=== PATIENT | male | born 1980 | race Caucasian/White ===

== ENCOUNTER 2020-08-24 08:07 | Outpatient (CLI) | payer BC, SELFPAY ==
[2020-08-25 14:31] LABS: SARS-CoV-2 RNA PCR Negative
== END 2020-08-24 08:08 | disposition home or self-care (01) ==
PROVIDERS: PCP Family Medicine; Visit Provider Family Medicine
DX: Z20.828 Contact with and (suspected) exposure to other viral communicable diseases (principal)
CPT/HCPCS: 87635; C9803; U0003

== ENCOUNTER 2020-09-10 20:16 | Emergency (ER) | payer BC, SELFPAY ==
[2020-09-10 20:36] VITALS: BP 149/95; PULSE 111; RESP 20; TEMP 37.1; O2SAT 98
--- NOTE | 2020-09-10 20:43 | ED.WOUNDLAC ---
HPI - Wound/Laceration General Chief Complaint: Wound/Laceration Stated Complaint: 40YO male w/ right index finger lac after he cut his finger with a fillet knife just [employer]. Here for lac repair. Related Data Home Medications Medication Instructions Recorded Confirmed liraglutide [Victoza 2-Eric] 0.6 mg SUBCUT DAILY 12/01/19 09/10/20 insulin glargine [Lantus Solostar 42 unit SUBCUT QPM 09/10/20 09/10/20 U-100 Insulin] Allergies Allergy/AdvReac Type Severity Reaction Status Date / Time promethazine Allergy Mild Unverified 05/20/19 20:05 BEE STINGS Allergy Unknown Uncoded 02/22/19 09:41 Review of Systems Review of Systems: All systems reviewed & are unremarkable except as noted in HPI and below Constitutional: Constitutional: Reports as per HPI and Reports no additional constitutional complaints Eyes: Eyes: Reports as per HPI and Reports no additional eye complaints ENT: Reports system reviewed and no additional complaints, except as documented Cardiovascular: Cardiovascular: Reports as per HPI and Reports no additional cardiovascular complaints Respiratory: Respiratory: Reports as per HPI and Reports no additional respiratory complaints Gastrointestinal: Gastrointestinal: Reports as per HPI and Reports no additional gastrointestinal complaints Genitourinary: Genitourinary: Reports no additional male genitourinary complaints and Reports as per HPI Musculoskeletal: Musculoskeletal: Reports no additional musculoskeletal complaints and Reports as per HPI Integumentary/Breasts: Comments: Right index finger laceration 3cm in length with a flap. Exposed S/C tissue Neurologic: Reports system reviewed and no additional complaints, except as documented and Reports as per HPI Psychiatric: Psychiatric: Reports no additional psychiatric complaints and Reports as per HPI Endocrine: Endocrine: Reports no additional endocrine complaints and Reports as per HPI Hematologic/Lymphatic: Hematologic/Lymphatic: Reports no additional hematologic/lymphatic complaints and Reports as per HPI Allergic/Immunologic: Allergic/Immunologic: Reports no additional allergic/immunologic complaints [facility] Past Medical History Medical History Diabetes mellitus Obesity Surgical History Surgical History H/O shoulder surgery Family History Family History Grandparent Diabetes mellitus Social History Social History Additional smoking assessment comments: currently smokes half pack of cigarettes a day. Substance use: never Exam Const: General: no acute distress and alert Orientation/consciousness: patient oriented x3 Limitations: altered mental status HENMT: Head: normal to inspection Eyes: Pupils: Equal, round and reactive pupils present Neck: Neck: normal visual inspection Chest: Chest palpation & inspection: normal inspection of the chest Resp: Effort & Inspection: normal respiratory effort Cardio: Rate: regular rate Rhythm: regular rhythm GI: Inspection: non-distended GI Palp: Yes Soft to palpation and No Tenderness to palpation present (GI) Skin: Wounds: wounds noted (Right index finger lac w/ 3cm lac in shape of a flap w/ exposed SC tissue) Neuro: General: patient oriented x3, moves all extremities, no meningeal signs, no focal motor deficits and CN's II-XI intact bilaterally Cranial nerves: Yes Nystagmus not present Extrem: General: normal to inspection Psych: Mental Status: mental status grossly normal Thought content: Yes Normal thought content present Course Vital Signs Vital signs: Vital Signs Temperature 98.7 F 09/10/20 20:36 Pulse Rate 111 H 09/10/20 20:36 Respiratory Rate 20 09/10/20 20:36 Blood Pressure 149/95 H 09/10/20 20:36 Pulse Oximetry 98 10
== END 2020-09-10 21:15 | disposition home or self-care (01) ==
PROVIDERS: Emergency Provider Family Medicine; PCP Family Medicine
DX: S61.210A Laceration without foreign body of right index finger without damage to nail, initial encounter (principal)
CPT/HCPCS: 12002; 99282; 99283

== ENCOUNTER 2021-05-02 23:33 | Emergency (ER) | payer BC, SELFPAY ==
--- NOTE | ~2021-05-02 | XR_ITS ---
XR foot LT min 3V 05/03/2021 00:49 Indication: Diabetic ulcer great toe Procedure: 4 views left foot Comparison: 06/28/2017 Findings: Mild osteoarthritis first MTP joint. Lisfranc joint intact. No focal soft tissue abnormalit y. No foreign bodies. No soft tissue gas. No evidence for osteomyelitis. No fracture or traumatic mal alignment. Impression: 1: No acute bone or joint abnormality. Reviewed, dictated and finalized at location A. Impression: 1: No acute bone or joint abnormality.
[2021-05-02 23:56] VITALS: BP 141/99; PULSE 97; RESP 18; TEMP 36.9; O2SAT 97
--- NOTE | 2021-05-03 00:17 | ED.WOUNDLAC ---
HPI - Wound/Laceration General Chief Complaint: Wound/Laceration Stated Complaint: toe pain Time Seen by Provider: 05/03/21 00:17 Source: patient Mode of arrival: ambulatory Limitations: no limitations History of Present Illness HPI narrative: 41-year-old man with a history of type 2 diabetes comes in today complaining of wound on his left great toe. Patient states that he noticed some bleeding after walking around today in tennis shoes. Patient states that he has no pain, redness, red streaks, purulent drainage, fever, chills, weakness or night sweats. Onset (ago): week(s) (1) Extremity Location: Left: foot (great toe) Place: home Context: other Associated symptoms: none Treatments prior to arrival: bandage Related Data Home Medications Medication Instructions Recorded Confirmed liraglutide [Victoza 2-Eric] 1.8 mg SUBCUT DAILY 12/01/19 05/02/21 albuterol sulfate 2.5 mg INHALATION PRN 05/02/21 05/02/21 insulin glargine [Basaglar KwikPen 17 unit SUBCUT HS 05/02/21 05/03/21 U-100 Insulin] insulin lispro See Rx Instructions .ROUTE .COMPLEX 05/02/21 05/02/21 Allergies Allergy/AdvReac Type Severity Reaction Status Date / Time promethazine Allergy Mild Unverified 05/20/19 20:05 BEE STINGS Allergy Unknown Uncoded 02/22/19 09:41 Review of Systems Review of Systems: All systems reviewed & are unremarkable except as noted in HPI and below Constitutional: Constitutional: Denies chills and Denies fever(s) ENT: Denies nasal congestion and Denies sore throat Respiratory: Respiratory: Denies cough and Denies dyspnea Gastrointestinal: Gastrointestinal: Denies abdominal pain, Denies nausea and Denies vomiting Genitourinary: Genitourinary: Denies dysuria and Denies urinary frequency Integumentary/Breasts: Skin/Breast: Reports as per HPI, Denies pruritus, Denies erythema and Denies rash Hematologic/Lymphatic: Hematologic/Lymphatic: Denies easy bleeding and Denies easy bruising PMFSH Past Medical History Medical History Diabetes mellitus Obesity Surgical History Surgical History H/O shoulder surgery Family History Family History Grandparent Diabetes mellitus Social History Social History Additional smoking assessment comments: currently smokes half pack of cigarettes a day. Substance use: never Exam Const: General: no acute distress and alert Nutritional Appearance: obese Orientation/consciousness: patient oriented x3 Limitations: no limitations Eyes: Conjunctivae: conjunctivae normal Pupils: Equal, round and reactive pupils present EOM: EOMs intact bilaterally Resp: Effort & Inspection: normal respiratory effort and not labored Auscultation: clear to auscultation bilaterally, no rales, no rhonchi and wheezes ( few scattered) Cardio: Rate: regular rate Rhythm: regular rhythm Heart sounds: no murmurs Skin: General skin exam: normal color, no jaundice and no pallor Rashes: no rashes Other: 3 cm crack of the great toe tip on the left. there is no active bleeding, erythema, discharge, lymphangitis or warmth. Neuro: General: patient oriented x3, moves all extremities, no focal motor deficits and CN's II-XI intact bilaterally Speech: normal speech Gait exam (Neuro): Normal gait present Extrem: General: normal to inspection and no clubbing, cyanosis or edema Psych: Appearance: grossly normal and well kempt Mental Status: mental status grossly normal Affect: normal affect Thought content: Yes Normal thought content present Course Vital Signs Vital signs: Vital Signs Temperature 36.9 C 05/02/21 23:56 Pulse Rate 97 05/02/21 23:56 Respiratory Rate 18 05/02/21 23:56 Blood Pressure 141/99 H 05/02/21 23:56 Pulse Oximetry 97 05/02/21 23:56 [place]
--- NOTE | 2021-05-03 00:20 | PC.NURSE ---
0005-Cleaned left great toe with hibclense, safeclense, and sterile water.
[2021-05-03 01:42] VITALS: BP 140/90; PULSE 87; RESP 18; O2SAT 97
== END 2021-05-03 01:45 | disposition home or self-care (01) ==
PROVIDERS: Emergency Provider Emergency Medicine; PCP Family Medicine
DX: S91.102A Unspecified open wound of left great toe without damage to nail, initial encounter (principal)
CPT/HCPCS: 73630; 99283

== ENCOUNTER 2022-08-14 22:44 | Emergency (ER) | payer BC, SELFPAY ==
--- NOTE | ~2022-08-14 | XR_ITS ---
EXAMINATION: XR sacroiliac joints min 3V DATE: 08/14/2022 23:43 INDICATION: Bilateral sacroiliac pain. TECHNIQUE: 3 views of the sacroiliac joints were obtained. COMPARISON: None. FINDINGS: Bone alignment is normal. No fracture. The sacroiliac joints are normal. IMPRESSION: 1. Normal sacroiliac joints. Reviewed, dictated and finalized at location A.
[2022-08-14 22:58] VITALS: BP 135/89; PULSE 93; RESP 20; TEMP 36.6; O2SAT 100
--- NOTE | 2022-08-14 23:02 | ED.BACK ---
HPI - Back Pain/Injury General Chief Complaint: Back Pain/Injury Stated Complaint: kidney pains Time Seen by Provider: 08/14/22 23:02 History of Present Illness HPI Narrative: 42-year-old male patient is here with complaints of low back pain for the last 3-4 days. States that the pain is constant and worsens with movement. There is no radiation of pain into the buttocks or into the lower abdomen. He has had no associated trouble urinating. He has not noticed any blood in the urine or any burning sensation. He denies any injury to the lower back area. He states that he does have degenerative disc disease. Denies any associated fever or chills. Denies COVID exposure and her vaccination. Does not smoke or use alcohol. Has no history of drug abuse. Related Data Home Medications Medication Instructions Recorded Confirmed liraglutide 0.6 mg/0.1 mL (18 mg/3 1.8 mg subcut DAILY 12/01/19 08/14/22 mL) subcutaneous pen injector (Victoza 2-Eric) insulin lispro 100 unit/mL See Rx Instructions .Route .COMPLEX 05/02/21 08/14/22 subcutaneous pen (Humalog KwikPen (U-100) Insulin) atorvastatin 20 mg tablet 20 mg PO DAILY 08/14/22 08/14/22 hydrocodone 10 mg-acetaminophen 1 tablet PO PRN PRN Pain 08/14/22 08/14/22 325 mg tablet insulin glargine 100 unit/mL (3 52 unit subcut HS 08/14/22 08/14/22 mL) subcutaneous pen (Lantus Solostar U-100 Insulin) Allergies Allergy/AdvReac Type Severity Reaction Status Date / Time promethazine Allergy Mild Unknown Verified 08/14/22 23:16 BEE STINGS Allergy Unknown Unknown Uncoded 08/14/22 23:16 Review of Systems Review of Systems: All systems reviewed & are unremarkable except as noted in HPI and below Constitutional: Constitutional: Reports no additional constitutional complaints and Denies frequent falls Eyes: Eyes: Reports no additional eye complaints ENT: Reports system reviewed and no additional complaints, except as documented Cardiovascular: Cardiovascular: Reports no additional cardiovascular complaints Respiratory: Respiratory: Reports no additional respiratory complaints Gastrointestinal: Gastrointestinal: Reports no additional gastrointestinal complaints Genitourinary: Genitourinary: Reports no additional male genitourinary complaints Musculoskeletal: Musculoskeletal: Reports no additional musculoskeletal complaints Integumentary/Breasts: Skin/Breast: Reports system reviewed and no additional complaints, except as docu Neurologic: Reports system reviewed and no additional complaints, except as documented Psychiatric: Psychiatric: Reports no additional psychiatric complaints Endocrine: Endocrine: Reports no additional endocrine complaints PMFSH Past Medical History Medical History Degenerative disc disease Diabetes mellitus Obesity Surgical History Surgical History H/O shoulder surgery Family History Family History Grandparent Diabetes mellitus Social History Social History Additional smoking assessment comments: currently smokes half pack of cigarettes a day. Alcohol use details: Does not drink alcohol Substance use: never Exam Narrative: Alert male patient in no acute distress. Stable vital signs HEENT is normal. Lungs are clear. Heart tones are regular. Abdomen is soft and nontender. There is no guarding or rebound. Bowel sounds are active. The curvature of the spine is normal. Patient has tenderness over the SI joints bilaterally. There is no CVA tenderness. Range of motion of the spine is normal. Straight-leg raising is bilaterally symmetrical and great than 60?. Patient is alert and oriented to time place and person. Speech is normal. Gait and station is normal. Motor and sensory is intact. cr
[2022-08-14] MEDS: KETOROLAC (*BKC) 60 MG/2 ML VIAL IM (23:25)
[2022-08-14 23:29] LABS: Add Urine Microscopic? YES; Appearance Urine Clear (Clear); Bilirubin Urine Negative (Negative); Blood Urine Negative (Negative); Color Urine Light Yellow (Yellow); Glucose Urine UA 3+ (Negative); Ketones Urine Negative (Negative); Leukocyte Esterase Ur Negative (Negative); Nitrate Urine Negative (Negative); Protein Urine Negative (Negative); Specific Grav Ur <= 1.005 (1.010-1.020); Urobilinogen Urine 0.2 mg/dL (0.2-1.0)
[2022-08-14 23:35] LABS: Bacteria Urine None seen /hpf; RBC Urine 0-2 /hpf (0-2); Squamous Epithelial Cell Urine None seen /hpf (Few); WBC Urine 0-3 /hpf (0-3)
[2022-08-14 23:59] VITALS: BP 138/86; PULSE 74; RESP 18; O2SAT 99
== END 2022-08-15 00:01 | disposition home or self-care (01) ==
PROVIDERS: Emergency Provider Emergency Medicine; PCP Family Medicine
DX: M51.37 Other intervertebral disc degeneration, lumbosacral region (principal)
CPT/HCPCS: 72202; 81001; 96372; 99283; J1885

== ENCOUNTER 2022-09-03 17:45 | Emergency (ER) | payer BC, SELFPAY ==
--- NOTE | 2022-09-03 17:51 | ED.EYEPROB ---
HPI - Eye Problem General Chief complaint: Eye Problems Stated complaint: R eye pain started yesterday Time Seen by Provider: 09/03/22 17:52 Source: patient and RN notes reviewed Mode of arrival: ambulatory Limitations: no limitations History of Present Illness MD chief complaint: eye pain Onset (ago): day(s) (1) Onset description: sudden Duration: constant Location: right eye Eye Symptoms: burning, pain and itching Place: home Mechanism: none Severity: moderate If Pain, Quality: burning Associated symptoms: none Treatments Prior to Arrival: none Related Data Home Medications Medication Instructions Recorded Confirmed liraglutide 0.6 mg/0.1 mL (18 mg/3 1.8 mg subcut DAILY 12/01/19 09/03/22 mL) subcutaneous pen injector (Victoza 2-Eric) insulin lispro 100 unit/mL See Rx Instructions .Route .COMPLEX 05/02/21 09/03/22 subcutaneous pen (Humalog KwikPen (U-100) Insulin) atorvastatin 20 mg tablet 20 mg PO DAILY 08/14/22 09/03/22 hydrocodone 10 mg-acetaminophen 1 tablet PO PRN PRN Pain 08/14/22 09/03/22 325 mg tablet insulin glargine 100 unit/mL (3 52 unit subcut HS 08/14/22 09/03/22 mL) subcutaneous pen (Lantus Solostar U-100 Insulin) Allergies Allergy/AdvReac Type Severity Reaction Status Date / Time promethazine Allergy Mild Unknown Verified 09/03/22 18:01 BEE STINGS Allergy Unknown Unknown Uncoded 09/03/22 18:01 Review of Systems Review of Systems: All systems reviewed & are unremarkable except as noted in HPI and below PMFSH Past Medical History Medical History Degenerative disc disease Diabetes mellitus Obesity Surgical History Surgical History H/O shoulder surgery Family History Family History Grandparent Diabetes mellitus Social History Social History Additional smoking assessment comments: currently smokes half pack of cigarettes a day. Alcohol use details: Does not drink alcohol Substance use: never Exam Const: General: healthy appearing, no acute distress and alert Nutritional Appearance: well nourished and obese morbidly obese Orientation/consciousness: patient oriented x3 Limitations: no limitations HENMT: Head: normal to inspection Ears: external ears normal Face/Nose/Sinus: Normal external nose present Mouth: Yes moist mucous membranes Eyes: Alignment and Position: alignment normal Periorbital: periorbital findings normal Eyelids: eyelid abnormality right lower eyelid erythema, swelling and tenderness Conjunctivae: conjunctival abnormality right conjunctival injection localized Pupils: Equal, round and reactive pupils present EOM: EOMs intact bilaterally Neck: Neck: normal visual inspection Resp: Effort & Inspection: normal respiratory effort Auscultation: clear to auscultation bilaterally Cardio: Rate: tachycardic Rhythm: regular rhythm GI: Auscultation: normal bowel sounds Back/Spine/Pelvis: Cervical Spine: cervical ROM normal Thoracic/Lumbar Spine: thoraco-lumbar ROM normal Skin: General skin exam: normal color Rashes: no rashes Neuro: General: patient oriented x3, moves all extremities, no focal motor deficits and CN's II-XI intact bilaterally Speech: normal speech Gait exam (Neuro): Normal gait present Extrem: General: normal to inspection and no clubbing, cyanosis or edema Psych: Mental Status: mental status grossly normal Affect: normal affect Attitude: cooperative Course Vital Signs Vital signs: Vital Signs Temperature 36.4 C 09/03/22 17:56 Pulse Rate 130 H 09/03/22 17:56 Respiratory Rate 18 09/03/22 17:56 Blood Pressure 140/94 H 09/03/22 17:56 Pulse Oximetry 97 09/03/22 17:56 Oxygen Delivery Room Air 09/03/22 17:56 Temperature 36.4 C 09/03/22 18:17 Pulse Rate 101 H 09/03/22
[2022-09-03 17:56] VITALS: BP 140/94; PULSE 130; RESP 18; TEMP 36.4; O2SAT 97
[2022-09-03] MEDS: TOBRAMYCIN/DEXAMETHASONE OP 2.5 ML BTL 2 DROP RIGHT EYE (18:10)
[2022-09-03 18:17] VITALS: BP 140/94; PULSE 101; RESP 18; TEMP 36.4; O2SAT 97
== END 2022-09-03 18:22 | disposition home or self-care (01) ==
PROVIDERS: Emergency Provider Emergency Medicine; PCP Family Medicine
DX: H01.002 Unspecified blepharitis right lower eyelid (principal)
CPT/HCPCS: 99283; A9270

== ENCOUNTER 2024-02-09 13:51 | Emergency (ER) | payer BC, SELFPAY ==
[2024-02-09 14:00] VITALS: BP 130/92; PULSE 120; RESP 16; TEMP 36.9; O2SAT 100
--- NOTE | 2024-02-09 14:07 | ED.GENADULT ---
HPI - General Adult General Chief complaint: Ear Stated complaint: DIZZY/NAUSEA/EAR CLOGGED Source: patient, RN notes reviewed and old records reviewed Mode of arrival: ambulatory Limitations: no limitations History of Present Illness HPI narrative: 43-year-old male patient presents to [facility] with complaints bilateral ear pressure with slight pain in left ear and vertigo that started today. Patient denies any other symptoms. Related Data Home Medications Medication Instructions Recorded Confirmed insulin lispro 100 unit/mL See Rx Instructions .Route .COMPLEX 05/02/21 02/09/24 subcutaneous pen (Humalog KwikPen (U-100) Insulin) atorvastatin 20 mg tablet 20 mg PO DAILY 08/14/22 02/09/24 hydrocodone 10 mg-acetaminophen 1 tablet PO PRN PRN Pain 08/14/22 02/09/24 325 mg tablet insulin glargine 100 unit/mL (3 52 unit subcut HS 08/14/22 02/09/24 mL) subcutaneous pen (Lantus Solostar U-100 Insulin) dulaglutide 4.5 mg/0.5 mL See Rx Instructions .Route .COMPLEX 02/09/24 02/09/24 subcutaneous pen injector (Trulicity) empagliflozin 25 mg tablet See Rx Instructions .Route .COMPLEX 02/09/24 02/09/24 (Jardiance) ergocalciferol (vitamin D2) 1,250 See Rx Instructions .Route .COMPLEX 02/09/24 02/09/24 mcg (50,000 unit) capsule gabapentin 600 mg tablet 600 mg PO DAILY 02/09/24 02/09/24 metoprolol succinate 25 mg 25 mg PO DAILY 02/09/24 02/09/24 tablet,extended release 24 hr Allergies Allergy/AdvReac Type Severity Reaction Status Date / Time promethazine Allergy Mild Unknown Verified 02/09/24 14:06 BEE STINGS Allergy Unknown Unknown Uncoded 02/09/24 14:06 Review of Systems Constitutional: Constitutional: Reports no additional constitutional complaints, Denies body ache(s), Denies chills, Denies fatigue, Denies fever(s) and Denies headache(s) Eyes: Eyes: Reports no additional eye complaints and Denies blurry vision ENT: Reports system reviewed and no additional complaints, except as documented, Reports vertigo, Denies dizziness, Denies ear discharge, Reports otalgia, Denies facial pain, Denies headache(s), Denies nasal congestion, Denies nasal discharge, Denies sinus pain, Denies sinus pressure and Denies sore throat Cardiovascular: Cardiovascular: Reports no additional cardiovascular complaints, Denies chest pain, Denies chest pain at rest, Denies rapid heart rate and Denies dyspnea Respiratory: Respiratory: Reports no additional respiratory complaints, Denies chest congestion, Denies cough, Denies pain on inspiration, Denies pain with cough and Denies dyspnea Gastrointestinal: Gastrointestinal: Denies abdominal pain, Denies diarrhea, Denies nausea and Denies vomiting Integumentary/Breasts: Skin/Breast: Denies rash Neurologic: Reports system reviewed and no additional complaints, except as documented, Denies vertigo, Denies dizziness and Denies headache(s) Endocrine: Endocrine: Denies fatigue PMFSH Past Medical History Medical History Degenerative disc disease Diabetes mellitus Obesity Surgical History Surgical History H/O shoulder surgery Family History Family History Grandparent Diabetes mellitus Social History Social History Additional smoking assessment comments: currently smokes half pack of cigarettes a day. Alcohol use details: Does not drink alcohol Substance use: never Comments At the time of my signature, I reviewed and agree with the nursing past medical, surgical, social, and family history. There is no relevant family history pertinent to the patient complaint. Exam Const: General: cooperative, healthy appearing, no acute distress and well nourished Nutritional Appearance: well nourished Orientation/consciousness: patient oriented x3
== END 2024-02-09 14:27 | disposition home or self-care (01) ==
PROVIDERS: Emergency Provider Registered Nurse; PCP Physician Assistant
DX: H65.03 Acute serous otitis media, bilateral (principal); R42 Dizziness and giddiness; F17.210 Nicotine dependence, cigarettes, uncomplicated; E11.9 Type 2 diabetes mellitus without complications; E66.9 Obesity, unspecified; Z68.41 Body mass index [BMI] 40.0-44.9, adult
CPT/HCPCS: 99213; G0463

== ENCOUNTER 2024-03-08 10:40 | Emergency (ER) | payer BC, SELFPAY ==
--- NOTE | ~2024-03-08 | XR_ITS ---
XR ankle RT min 3V 03/08/2024 11:25 Indication: Right ankle pain Procedure: 4 views right ankle Comparison: No prior studies for comparison. Findings: No fracture, subluxation or dislocation. There are loose bodies at the medial malleolus. An kle mortise intact. Talar dome is normal. No soft tissue abnormality. Impression: 1: No acute bone or joint abnormality. Reviewed, dictated and finalized at location A. Impression: 1: No acute bone or joint abnormality.
--- NOTE | 2024-03-08 10:41 | ED.LOWEXIN ---
HPI - Extremity Injury (Lower) General Chief Complaint: Extremity Problem,Nontraumatic Stated Complaint: Right Ankle Pain Time Seen by Provider: 03/08/24 10:41 Source: patient Mode of arrival: ambulatory Limitations: no limitations History of Present Illness HPI Narrative: Patient is a 44-year-old male who presents with right ankle pain for 1 week that worsened last night. Patient states he has had previous injury to ankle and has degenerative joint disease. Patient states it pops every time he moves. Patient states he took Tylenol and ibuprofen with no relief. Patient reports he has a high pain tolerance. Patient has had history of gout and toes and has been treated. Patient reports this is more painful than gout. Reports ankle swollen last night. 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 Related Data Home Medications Medication Instructions Recorded Confirmed insulin lispro 100 unit/mL See Rx Instructions .Route .COMPLEX 05/02/21 03/08/24 subcutaneous pen (Humalog KwikPen (U-100) Insulin) atorvastatin 20 mg tablet 20 mg PO DAILY 08/14/22 03/08/24 insulin glargine 100 unit/mL (3 52 unit subcut HS 08/14/22 03/08/24 mL) subcutaneous pen (Lantus Solostar U-100 Insulin) dulaglutide 4.5 mg/0.5 mL See Rx Instructions .Route .COMPLEX 02/09/24 03/08/24 subcutaneous pen injector (Trulicity) empagliflozin 25 mg tablet See Rx Instructions .Route .COMPLEX 02/09/24 03/08/24 (Jardiance) ergocalciferol (vitamin D2) 1,250 See Rx Instructions .Route .COMPLEX 02/09/24 03/08/24 mcg (50,000 unit) capsule gabapentin 600 mg tablet 600 mg PO DAILY 02/09/24 03/08/24 metoprolol succinate 25 mg 25 mg PO DAILY 02/09/24 03/08/24 tablet,extended release 24 hr albuterol sulfate 2.5 mg/3 mL mg 03/08/24 (0.083 %) solution for nebulization albuterol sulfate 90 mcg/actuation inhalation 03/08/24 aerosol inhaler Allergies Allergy/AdvReac Type Severity Reaction Status Date / Time promethazine Allergy Mild Unknown Verified 03/08/24 10:53 BEE STINGS Allergy Unknown Unknown Uncoded 03/08/24 10:53 Review of Systems Review of Systems: All systems reviewed & are unremarkable except as noted in HPI and below Constitutional: Constitutional: Denies body ache(s), Denies chills, Denies fatigue, Denies fever(s), Denies headache(s), Denies malaise and Denies weakness Eyes: Eyes: Denies blurry vision, Denies irritation and Denies loss of vision ENT: Denies otalgia, Denies headache(s), Denies nasal discharge, Denies sinus pain and Denies sore throat Cardiovascular: Cardiovascular: Denies chest pain, Denies irregular heart rhythm and Denies dyspnea Respiratory: Respiratory: Denies dyspnea Gastrointestinal: Gastrointestinal: Denies abdominal pain, Denies melena, Denies hematochezia, Denies diarrhea, Denies nausea and Denies vomiting Musculoskeletal: Musculoskeletal: Denies back pain, Denies myalgias, Reports arthralgias and Reports joint swelling Integumentary/Breasts: Skin/Breast: Denies pruritus and Denies rash Neurologic: Denies headache(s), Denies loss of vision and Denies weakness Psychiatric: Psychiatric: Reports no additional psychiatric complaints Endocrine: Endocrine: Denies fatigue PMFSH Past Medical History Medical History Degenerative disc disease Diabetes mellitus Obesity Surgical History Surgical History H/O shoulder surgery Family History Family History Grandparent Diabetes mellitus Social History Social History Additional smoking assessment comments: currently smokes half pack of cigarettes a day. Alcohol use details: Does not drink alcohol Substance use: never Comments At time of signature, agree with nursing past medical, surgical, social and family history. There is no relevant family history pertinent to the presenting complaint. Exam Const: General: cooperative, healthy appearing, comfortable, no acute distress and well nourished Nutritional Appearance: well nourished Orientation/consciousness: patient oriented x3 Limitations: no limitations HENMT: Head: normal to inspection, normocephalic and atraumatic Ears: hearing grossly normal bilaterally and external ears normal Face/Nose/Sinus: Normal external nose present, normal facial exam and face symmetric Face and sinus: normal facial exam and face symmetric Mouth: Yes lip normal Eyes: General: appearance normal, both eyes and all related structures Alignment and Position: alignment normal and position normal Periorbital: periorbital findings normal Eyelids: eyelids normal Pupils: Equal, round and reactive pupils present EOM: EOMs intact bilaterally Neck: Neck: normal visual inspection, full ROM and supple Chest: Chest palpation & inspection: normal inspection of the chest Resp: Effort & Inspection: normal respiratory effort and able to speak in complete sentences Auscultation: clear to auscultation bilaterally Cardio: Rate: regular rate Rhythm: regular rhythm Heart sounds: S1 normal heart sound present and S2 normal heart sound present GI: Inspection: normal to inspection Skin: General skin exam: normal color and no rashes or lesions noted Neuro: General: patient oriented x3 and moves all extremities Cranial nerves: Yes Equal, round and reactive pupils present Speech: normal speech Gait exam (Neuro): Normal gait present Extrem: General: normal to inspection, full ROM and no edema Right lower extremity: ankle Details: normal to inspection, tenderness Location: of the lateral malleolus and abnormal ROM Details: pain with active ROM Details: with inversion and with eversion; not with plantar flexion and not with dorsiflexion; no swelling, no unusual warmth, no ecchymosis and achilles tendon exam normal and foot Details: normal capillary refill, toes with normal ROM, vascular exam Details: dorsalis pedis pulse present and normal capillary refill, tendon exam Details: active flexion normal and active extension normal Location: of all toes and motor-sensory exam; no tenderness and no ecchymosis Psych: Appearance: grossly normal and well kempt Mental Status: mental status grossly normal Speech and movement: Normal speech and movement present Affect: normal affect Attitude: cooperative Thought process: Normal thought process present Course Course Emergency Course: Patient is aware of diagnosis, understands and agrees to treatment plan. Anticipatory guidance given. Patient agrees to follow-up as directed and is aware of reasons to seek care at the emergency department. Portions of this record may have been created with voice recognition software Level of Care: Express Care Visit Vital Signs Vital signs: Reviewed MDM - Extremity Injury (Lower) MDM Narrative Medical decision making narrative: Ryan wrap applied Exam findings show no acute concerns or changes; patient is non-toxic appearing and is in no distress.? Patient is appropriate for outpatient treatment and follow-up. Discharge instructions reviewed with patient, as well as provided in writing per nursing staff. The instructions also include specific and strict return/GO TO THE ER as well as f/u information. All questions have been answered, and the patient deny any further questions with discharge and discharge plan. Differential Diagnosis Differential diagnosis: Likely ankle sprain and strain, ankle fracture and other (Ankle effusion, osteoarthritis, degenerative joint disease) Discharge Plan Discharge Clinical Impression: Degenerative joint disease of ankle, right Qualifiers: Osteoarthritis type: unspecified Qualified Code(s): M19.071 - Primary osteoarthritis, right ankle and foot Patient Disposition: Home, Self-Care Condition: Stable Instructions: Ankle Sprain (ED), Osteoarthritis (ED) Additional Instructions: Xray showed no fracture. Did show foreign bodies indicative of degenerative joint disease Minimize activities that aggravate the condition The RICE protocol. Follow the RICE protocol as soon as possible after your injury: Rest your ankle by not walking on it. Ice should be immediately applied to keep the swelling down. It can be used for 20 to 30 minutes, three or four times daily. Do not apply ice directly to your skin. Compression dressings, bandages or ryan-wraps will immobilize and support your injured ankle. Elevate your ankle above the level of your heart as often as possible during the first 48 hours. Medication: Nonsteroidal anti-inflammatory drugs (NSAIDs) such as ibuprofen and naproxen can help control pain and swelling. Because they improve function by both reducing swelling and controlling pain, they are a better option for mild sprains than narcotic pain medicines. Please schedule a follow-up visit with your personal physician for further evaluation and treatment within 1week OR If your symptoms persist, change or worsen significantly before you can contact your personal physician then please, without delay, go to the emergency department for further evaluation. Prescriptions: New diclofenac sodium 1 % gel 2 g topical QID Qty: 100 0RF Rx Instructions: apply to single elbow, wrist or hand; for hand includes palm/fingers/back of hand meloxicam 7.5 mg tablet 7.5 mg PO DAILY 7 Days Qty: 7 0RF No Action atorvastatin 20 mg tablet 20 mg PO DAILY insulin glargine [Lantus Solostar U-100 Insulin] 100 unit/mL (3 mL) insulin pen 52 unit SUBCUT HS methocarbamol 750 mg tablet 750 mg PO TID 5 Days Qty: 15 0RF insulin lispro [Humalog KwikPen Insulin] 100 unit/mL insulin pen See Rx Instructions .ROUTE .COMPLEX Rx Instructions: Per SSI albuterol sulfate 2.5 mg /3 mL (0.083 %) solution for nebulization albuterol sulfate 90 mcg/actuation HFA aerosol inhaler INHALATION metoprolol succinate 25 mg tablet extended release 24 hr 25 mg PO DAILY ergocalciferol (vitamin D2) 1,250 mcg (50,000 unit) capsule See Rx Instructions .ROUTE .COMPLEX Rx Instructions: see rx instructions gabapentin 600 mg tablet 600 mg PO DAILY Jardiance 25 mg tablet See Rx Instructions .ROUTE .COMPLEX Rx Instructions: see rx instructions Trulicity 4.5 mg/0.5 mL pen injector See Rx Instructions .ROUTE .COMPLEX Rx Instructions: see rx instructions meclizine 12.5 mg tablet 25 mg PO TID PRN (Reason: dizziness) Qty: 20 0RF Rx Instructions: One or 2 tablets t.i.d. dizziness fluticasone propionate [Allergy Relief (fluticasone)] 50 mcg/actuation spray,suspension 2 spray intranasal DAILY Qty: 16 0RF Rx Instructions: administer into each nostril Follow-up/Referrals: Radha,AMA Moraes [Primary Care Provider] - 3 Days Aristides Vasquez MD [Physician] - 3 Days (XR ankle RT min 3V 03/08/2024 11:25 Indication: Right ankle pain Procedure: 4 views right ankle Comparison: No prior studies for comparison. Findings: No fracture, subluxation or dislocation. There are loose bodies at the medial malleolus. Ankle mortise intact. Talar dome is normal. No soft tissue abnormality. Impression: 1: No acute bone or joint abnormality.) Stand Alone Forms: Work/School Release IP Time of Disposition: 11:44
[2024-03-08 11:00] VITALS: BP 119/92; PULSE 107; RESP 20; TEMP 36.9; O2SAT 99
== END 2024-03-08 11:49 | disposition home or self-care (01) ==
PROVIDERS: Emergency Provider Nurse Practitioner Family; PCP Physician Assistant
DX: M19.071 Primary osteoarthritis, right ankle and foot (principal); F17.210 Nicotine dependence, cigarettes, uncomplicated; Z79.4 Long term (current) use of insulin; E11.9 Type 2 diabetes mellitus without complications; E66.9 Obesity, unspecified; Z68.41 Body mass index [BMI] 40.0-44.9, adult
CPT/HCPCS: 73610; 99213; G0463